=== PATIENT | male | born 1985 | race Caucasian/White ===

== ENCOUNTER 2017-05-25 06:46 | Emergency (ER) | payer OTHER ==
[2017-05-25] MEDS ORDERED: MORPHINE SULFATE 4 MG/ML SYRINGE IV STA (07:23)
[2017-05-25] MEDS ORDERED: SODIUM CHLORIDE 0.9% 1,000 ML IV STA ×2 (07:23→08:27)
[2017-05-25] MEDS ORDERED: ONDANSETRON 4 MG/2 ML VIAL IVP STA ×2 (07:23→08:13)
[2017-05-25] MEDS ORDERED: FAMOTIDINE 20 MG/2 ML VIAL IV STA (07:24)
--- NOTE | 2017-05-25 07:31 | ED ---
General Adult HPI - General Chief complaint: Abdominal Pain Stated complaint: vomiting Time Seen by Provider: 05/25/17 07:05 Source: patient, family, RN notes reviewed Mode of arrival: wheelchair Limitations: no limitations - History of Present Illness Initial comments: Patient is a pleasant 31-year-old male presenting to the emergency department with nausea vomiting diarrhea and abdominal pain. Onset of symptoms was yesterday. Patient has been off his OxyContin for a couple of days or to his mother used to manage this however she recently . Patient has vomited multiple times. Patient has diffuse abdominal discomfort and states it is hard to comfortable. Patient has had loose stools and diarrhea. Patient has lower back pain which is chronic and unchanged. - Related Data Home Medications Medication Instructions Recorded Confirmed oxyCODONE HCL 20 mg PO BID PRN 06/01/15 05/25/17 Previous Rx's Medication Instructions Recorded Famotidine [Pepcid] 20 mg PO BID #30 tablet 05/25/17 Hydrocodone/Acetaminophen [[place] 1 each PO Q6HR PRN #12 tab 05/25/17 5-325] Ondansetron Odt [Zofran Odt] 4 mg PO Q8HR PRN #10 tab 05/25/17 Allergies Allergy/AdvReac Type Severity Reaction Status Date / Time No Known Allergies Allergy Verified 05/25/17 07:25 Review of Systems ROS Statement: Those systems with pertinent positive or pertinent negative responses have been documented in the HPI. ROS Other: All systems not noted in ROS Statement are negative. Constitutional: Denies: fever Eyes: Denies: eye pain ENT: Denies: ear pain Respiratory: Denies: cough Cardiovascular: Denies: chest pain Endocrine: Denies: fatigue Gastrointestinal: Reports: abdominal pain, nausea, vomiting, diarrhea Genitourinary: Denies: dysuria Musculoskeletal: Reports: back pain (Chronic) Skin: Denies: rash Neurological: Denies: weakness Past Medical History Past Medical History: Unable to Obtain Additional Past Medical History / Comment(s): chronic neck/back pain, migraines History of Any Multi-Drug Resistant Organisms: None Reported Past Surgical History: Appendectomy Past Psychological History: No Psychological Hx Reported Smoking Status: Current every day smoker Past Alcohol Use History: None Reported Past Drug Use History: None Reported General Exam Limitations: no limitations General appearance: alert Head exam: Present: atraumatic Eye exam: Present: normal appearance, PERRL ENT exam: Present: normal oropharynx Neck exam: Present: normal inspection Respiratory exam: Present: normal lung sounds bilaterally Cardiovascular Exam: Present: regular rate, normal rhythm Expanded Peripheral pulses: 2+: Dorsalis Pedis (R), Dorsalis Pedis (L) GI/Abdominal exam: Present: soft, tenderness (Mild diffuse tenderness). Absent : distended, guarding, rebound, rigid Extremities exam: Present: normal inspection. Absent: pedal edema, calf tenderness Neurological exam: Present: alert Psychiatric exam: Present: normal affect, normal mood Skin exam: Present: normal color Course Vital Signs 05/25/17 05/25/17 06:48 09:00 Temperature 96.8 F L Pulse Rate 68 83 Respiratory 18 17 Rate Blood Pressure 125/85 123/81 O2 Sat by Pulse 98 99 Oximetry Medical Decision Making - Medical Decision Making Patient reexamined and resting comfortably in bed. Patient only complains of burning in the epigastric region. Patient will be provided Carafate. Patient is updated on results and need for follow-up. Patient is instructed he will need to see his primary care physician for further pain medication. Patient is felt to be at least partially withdrawing from opiates. Patient will be provided a small number of [place] for today. Patient also provided Pepcid and nausea medication. Patient is advised of need to return if symptoms worsen. - Lab Data Result diagrams: 05/25/17 07:02 05/25/17 07:02 Lab Results 05/25/17 05/25/17 05/25/17 Range/Units 07:02 07:02 07:02 WBC 11.5 H (3.8-10.6) k/uL RBC 4.98 (4.30-5.90) m/uL Hgb 15.7 (13.0-17.5) gm/dL Hct 44.9 (39.0-53.0) % MCV 90.2 (80.0-100.0) fL MCH 31.6 (25.0-35.0) pg MCHC 35.0 (31.0-37.0) g/dL RDW 13.1 (11.5-15.5) % Plt Count 394 (150-450) k/uL Neutrophils % 78 % Lymphocytes % 16 % Monocytes % 5 % Eosinophils % 1 % Basophils % 0 % Neutrophils # 8.9 H (1.3-7.7) k/uL Lymphocytes # 1.8 (1.0-4.8) k/uL Monocytes # 0.6 (0-1.0) k/uL Eosinophils # 0.1 (0-0.7) k/uL Basophils # 0.0 (0-0.2) k/uL PT 11.1 (9.0-12.0) sec INR 1.1 (<1.2) APTT 22.5 (22.0-30.0) sec Sodium 143 (137-145) mmol/L Potassium 4.0 (3.5-5.1) mmol/L Chloride 105 (98-107) mmol/L Carbon Dioxide 21 L (22-30) mmol/L Anion Gap 17 mmol/L BUN 12 (9-20) mg/dL Creatinine 0.70 (0.66-1.25) mg/dL Est GFR (MDRD) Af Amer >60 (>60 ml/min/1.73 sqM) Est GFR (MDRD) Non-Af >60 (>60 ml/min/1.73 sqM) Glucose 120 H (74-99) mg/dL Calcium 10.1 (8.4-10.2) mg/dL Total Bilirubin 1.1 (0.2-1.3) mg/dL AST 35 (17-59) U/L ALT 52 (21-72) U/L Alkaline Phosphatase 94 (38-126) U/L Total Protein 8.1 (6.3-8.2) g/dL Albumin 5.1 H (3.5-5.0) g/dL Amylase 87 (30-110) U/L Lipase 151 (23-300) U/L Urine Color Urine Appearance (Clear) Urine pH (5.0-8.0) Ur Specific [place] (1.001-1.035) Urine Protein (Negative) Urine Glucose (UA) (Negative) Urine Ketones (Negative) Urine Blood (Negative) Urine Nitrite (Negative) Urine Bilirubin (Negative) Urine Urobilinogen (<2.0) mg/dL Ur Leukocyte Esterase (Negative) Urine RBC (0-5) /hpf Urine WBC (0-5) /hpf Urine Bacteria (None) /hpf Urine Mucus (None) /hpf Urine Sperm (None) /hpf 05/25/17 Range/Units 07:02 WBC (3.8-10.6) k/uL RBC (4.30-5.90) m/uL Hgb (13.0-17.5) gm/dL Hct (39.0-53.0) % MCV (80.0-100.0) fL MCH (25.0-35.0) pg MCHC (31.0-37.0) g/dL RDW (11.5-15.5) % Plt Count (150-450) k/uL Neutrophils % % Lymphocytes % % Monocytes % % Eosinophils % % Basophils % % Neutrophils # (1.3-7.7) k/uL Lymphocytes # (1.0-4.8) k/uL Monocytes # (0-1.0) k/uL Eosinophils # (0-0.7) k/uL Basophils # (0-0.2) k/uL PT (9.0-12.0) sec INR (<1.2) APTT (22.0-30.0) sec Sodium (137-145) mmol/L Potassium (3.5-5.1) mmol/L Chloride (98-107) mmol/L Carbon Dioxide (22-30) mmol/L Anion Gap mmol/L BUN (9-20) mg/dL Creatinine (0.66-1.25) mg/dL Est GFR (MDRD) Af Amer (>60 ml/min/1.73 sqM) Est GFR (MDRD) Non-Af (>60 ml/min/1.73 sqM) Glucose (74-99) mg/dL Calcium (8.4-10.2) mg/dL Total Bilirubin (0.2-1.3) mg/dL AST (17-59) U/L ALT (21-72) U/L Alkaline Phosphatase (38-126) U/L Total Protein (6.3-8.2) g/dL Albumin (3.5-5.0) g/dL Amylase (30-110) U/L Lipase (23-300) U/L Urine Color Yellow Urine Appearance Clear (Clear) Urine pH 5.5 (5.0-8.0) Ur Specific [place] 1.025 (1.001-1.035) Urine Protein 1+ H (Negative) Urine Glucose (UA) Negative (Negative) Urine Ketones 4+ H (Negative) Urine Blood Small H (Negative) Urine Nitrite Negative (Negative) Urine Bilirubin Negative (Negative) Urine Urobilinogen <2.0 (<2.0) mg/dL Ur Leukocyte Esterase Negative (Negative) Urine RBC 3 (0-5) /hpf Urine WBC 2 (0-5) /hpf Urine Bacteria Rare H (None) /hpf Urine Mucus Few H (None) /hpf Urine Sperm Few H (None) /hpf - Radiology Data Radiology results: report reviewed (Computed tomography scan abdomen pelvis shows mild circumferential wall thickening of distal esophagus which could represent esophagitis or pedal hernia. Otherwise no acute process.), image reviewed (Abdominal x-ray shows no acute process) Disposition Clinical Impression: Abdominal pain, Vomiting, Withdrawal from opioids Disposition: HOME SELF-CARE Condition: Stable Instructions: Abdominal Pain (ED), Opioid Withdrawal (ED) Additional Instructions: Please follow-up with your primary care physician regarding further pain management. Return for fever, increased abdominal pain, uncontrolled vomiting, worsening symptoms or other concerns. Prescriptions: Famotidine [Pepcid] 20 mg PO BID #30 tablet Hydrocodone/Acetaminophen [[place] 5-325] 1 each PO Q6HR PRN #12 tab PRN Reason: Pain Ondansetron Odt [Zofran Odt] 4 mg PO Q8HR PRN #10 tab PRN Reason: Nausea Referrals: Dat Zarco MD [Primary Care Provider] - 1-2 days Time of Disposition: 09:40
--- NOTE | 2017-05-25 07:50 | XR ---
EXAMINATION TYPE: XR KUB DATE OF EXAM: 05/25/2017 7:44 AM CLINICAL HISTORY: Abdominal pain TECHNIQUE: Single supine KUB image of the abdomen is obtained. COMPARISON: None. FINDINGS: Scattered gas is seen in non-distended small bowel loops. Gas and fecal material is seen in non-distended colon. There is no visceromegaly, pneumoperitoneum, or abnormal calcification apprecia [place]. The lung bases are clear and the osseous structures are intact. IMPRESSION: Nonobstructive bowel gas pattern.
[2017-05-25 07:55] LABS: ALT 52 U/L (21-72); AST 35 U/L (17-59); Alkaline Phosphatase 94 U/L (38-126); Amylase 87 U/L (30-110); Anion Gap 17 mmol/L; Blood Urea Nitrogen 12 mg/dL (9-20); Calcium 10.1 mg/dL (8.4-10.2); Carbon Dioxide 21 mmol/L (22-30); Chloride 105 mmol/L (98-107); Glucose 120 mg/dL (74-99); Non-African American GFR(MDRD) >60 (>60 ml/min/1.73 sqM); Sodium 143 mmol/L (137-145); Total Bilirubin 1.1 mg/dL (0.2-1.3); Total Protein 8.1 g/dL (6.3-8.2)
[2017-05-25 07:57] LABS: Appearance,Urine Clear (Clear); Bacteria,Urine Rare /hpf; Bilirubin,Urine Negative (Negative); Glucose,Urine (UA) Negative (Negative); Ketones,Urine 4+ (Negative); Leukocyte Esterase,Urine Negative (Negative); Mucus,Urine Few /hpf; Nitrite,Urine Negative (Negative); PH, Urine 5.5 (5.0-8.0); Particle Count 12657; Protein,Urine 1+ (Negative); RBC,Urine 3 /hpf (0-5); Specific Gravity,Urine 1.025 (1.001-1.035); Sperm,Urine Few /hpf; UA Billing (MACRO vs. MICRO) MICRO; Urobilinogen,Urine <2.0 mg/dL (<2.0); WBC,Urine 2 /hpf (0-5)
[2017-05-25 08:00] LABS: INR 1.1 (<1.2); Partial Thromboplastin Time 22.5 sec (22.0-30.0); Prothrombin Time 11.1 sec (9.0-12.0)
[2017-05-25 08:12] LABS: Basophils % (A) 0 %; CHCM 35.6; Eosinophils # (A) 0.1 k/uL (0-0.7); Eosinophils % (A) 1 %; HCT 44.9 % (39.0-53.0); HDW 2.57; HGB 15.7 gm/dL (13.0-17.5); Luc % (Auto) 1; Lymphocytes # (A) 1.8 k/uL (1.0-4.8); Lymphocytes % (A) 16 %; MCH 31.6 pg (25.0-35.0); MCV 90.2 fL (80.0-100.0); Monocytes # (A) 0.6 k/uL (0-1.0); Monocytes % (A) 5 %; Neutrophils # (A) 8.9 k/uL (1.3-7.7); Neutrophils % (A) 78 %; RBC 4.98 m/uL (4.30-5.90); RDW 13.1 % (11.5-15.5); WBC 11.5 k/uL (3.8-10.6); WBC (Perox) 11.26
--- NOTE | 2017-05-25 09:08 | CT ---
EXAMINATION TYPE: CT abdomen pelvis wo con DATE OF EXAM: 05/25/2017 COMPARISON: Radiograph same day HISTORY: 31-year-old male with pain, abdominal pain/vomiting CT DLP: 212.20 mGycm. Automated exposure control for dose reduction was used. TECHNIQUE: Contiguous axial scanning of the abdomen and pelvis without IV contrast. Coronal and sagit michael reconstructions performed. FINDINGS: The heart is normal size without pericardial effusion. Lung bases are clear without pleural effusion. There is mild circumferential wall thickening of the distal esophagus just above the GE junction. Noncontrast appearance of the liver shows either a cyst or some focal fat along the anterior falcifor m ligament. Gallbladder, adrenal glands, spleen, and pancreas show no gross abnormality. No nephrolithiasis or hydronephrosis. No dilated small bowel, free fluid, or free air. While the appendix is not discretely visualized, no abnormal inflammatory changes are seen at the rig ht lower quadrant. No significant stool burden. No mesenteric or retroperitoneal lymphadenopathy allowing for noncontrast technique. Bladder is partially urine distended. No abnormal fluid collection in the pelvis or obvious pelvic ly mphadenopathy For noncontrast technique. Bones: Sclerotic focus in the medial left iliac bone likely bone island. No osseous destructive proce ss. IMPRESSION: 1. Mild circumferential wall thickening at the distal esophagus just above the GE junction could rep resent esophagitis or a small hiatal hernia. Correlate with patient's symptoms. 2. Otherwise, no acute inflammatory process identified in the abdomen or pelvis to explain the patie nt's symptoms. 3. No nephrolithiasis or hydronephrosis.
[2017-05-25] MEDS ORDERED: SUCRALFATE 1 GM TAB PO STA (09:33)
[2017-05-25 09:47] VITALS: BP 126/67; PULSE 79; RESP 21; TEMP 97.3
== END 2017-05-25 09:55 | disposition home or self-care (01) ==
LOC: EC 06:46 → SUPCPDRO 06:46 → EC 09:55
DX: R10.84 Generalized abdominal pain (principal); R11.2 Nausea with vomiting, unspecified; F11.23 Opioid dependence with withdrawal; F17.200 Nicotine dependence, unspecified, uncomplicated; Z90.49 Acquired absence of other specified parts of digestive tract
CPT/HCPCS: 96374; 99284; 96375 ×2; 96376; 96361 ×2; 36415; 80053; 82150; 83690; 85025; 85610; 85730; 81001; 74000; 74176; J2270; J2405

== ENCOUNTER 2017-05-27 09:50 | Emergency (ER) | payer OTHER ==
[2017-05-27 10:01] VITALS: RESP 18; TEMP 97.4
[2017-05-27] MEDS ORDERED: DICYCLOMINE 10 MG/ML 2 ML AMP IM STA (10:30)
[2017-05-27] MEDS ORDERED: ONDANSETRON 4 MG/2 ML VIAL IVP STA (10:30)
[2017-05-27] MEDS ORDERED: HYDROmorphone 1 MG/ML 1 ML SYRINGE IVP STA (10:30)
[2017-05-27] MEDS ORDERED: SODIUM CHLORIDE 0.9% 2,000 ML IV STA (10:30)
[2017-05-27] MEDS ORDERED: PANTOPRAZOLE 40 MG/10 ML VIAL IVP STA (10:30)
--- NOTE | 2017-05-27 10:37 | ED ---
General Adult HPI - General Chief complaint: Abdominal Pain Stated complaint: abd pain, vomiting Time Seen by Provider: 05/27/17 10:16 Source: patient, RN notes reviewed Mode of arrival: ambulatory Limitations: no limitations - History of Present Illness Initial comments: Patient is a pleasant 31-year-old male presenting to the emergency Department with vomiting. Patient was in the emergency department 2 days ago with similar symptoms. Patient felt decent yesterday. Patient was able to tolerate oral intake yesterday however less than normal. Patient woke up this morning with similar symptoms. Patient has burning in his abdomen. Patient has had multiple episodes of vomiting. Burning extends up to the chest and into the back of his throat. Patient is also had several episodes of diarrhea. Patient recently discontinued OxyContin that he has been on for years. Patient was given a small prescription for [place] a couple days ago and still has a couple left. - Related Data Home Medications Medication Instructions Recorded Confirmed oxyCODONE HCL 20 mg PO BID PRN 06/01/15 05/25/17 Previous Rx's Medication Instructions Recorded Famotidine [Pepcid] 20 mg PO BID #30 tablet 05/25/17 Hydrocodone/Acetaminophen [[place] 1 each PO Q6HR PRN #12 tab 05/25/17 5-325] Ondansetron Odt [Zofran Odt] 4 mg PO Q8HR PRN #10 tab 05/25/17 Sucralfate [Carafate] 10 ml PO ACHS #200 ml 05/27/17 Allergies Allergy/AdvReac Type Severity Reaction Status Date / Time No Known Allergies Allergy Verified 05/27/17 10:01 Review of Systems ROS Statement: Those systems with pertinent positive or pertinent negative responses have been documented in the HPI. ROS Other: All systems not noted in ROS Statement are negative. Constitutional: Denies: fever Eyes: Denies: eye pain ENT: Denies: ear pain Respiratory: Denies: cough Cardiovascular: Reports: chest pain Endocrine: Denies: fatigue Gastrointestinal: Reports: abdominal pain, nausea, vomiting, diarrhea Genitourinary: Denies: dysuria Musculoskeletal: Reports: back pain (Chronic) Skin: Denies: rash Neurological: Denies: weakness Psychiatric: Reports: anxiety Past Medical History Past Medical History: Unable to Obtain Additional Past Medical History / Comment(s): chronic neck/back pain, migraines History of Any Multi-Drug Resistant Organisms: None Reported Past Surgical History: Appendectomy Past Psychological History: No Psychological Hx Reported Smoking Status: Current every day smoker Past Alcohol Use History: None Reported Past Drug Use History: None Reported General Exam Limitations: no limitations General appearance: alert Head exam: Present: atraumatic Eye exam: Present: normal appearance, PERRL ENT exam: Present: normal oropharynx Neck exam: Present: normal inspection Respiratory exam: Present: normal lung sounds bilaterally Cardiovascular Exam: Present: regular rate, normal rhythm Expanded Peripheral pulses: 2+: Dorsalis Pedis (R), Dorsalis Pedis (L) GI/Abdominal exam: Present: soft, tenderness (Mild epigastric tenderness), normal bowel sounds. Absent: distended, guarding, rebound, rigid, pulsatile mass Extremities exam: Present: normal inspection Neurological exam: Present: alert Psychiatric exam: Present: normal affect, normal mood Skin exam: Present: normal color Course Vital Signs 05/27/17 09:58 Temperature 97.4 F L Pulse Rate 80 Respiratory 18 Rate Blood Pressure 111/69 O2 Sat by Pulse 99 Oximetry - Reevaluation(s) Reevaluation #1: 05/27/17 12:24 Patient reevaluated and improved following GI cocktail. Patient states he has not been taking Pepcid and is strongly advised to do this. Patient states Carafate did help last time. EKG Findings - EKG Comments: EKG Findings:: Normal sinus rhythm 74. OK 146. QRS 82. QT 410. QTc 455. Right axis. Normal QRS. No acute ST change. Medical Decision Making - Lab Data Result diagrams: 05/27/17 10:20 05/27/17 10:20 Lab Results 05/27/17 05/27/17 05/27/17 Range/Units 10:20 10:20 10:20 WBC 8.7 (3.8-10.6) k/uL RBC 4.75 (4.30-5.90) m/uL Hgb 15.6 (13.0-17.5) gm/dL Hct 43.5 (39.0-53.0) % MCV 91.6 (80.0-100.0) fL MCH 33.0 (25.0-35.0) pg MCHC 36.0 (31.0-37.0) g/dL RDW 13.2 (11.5-15.5) % Plt Count 329 (150-450) k/uL Neutrophils % 86 % Lymphocytes % 9 % Monocytes % 4 % Eosinophils % 0 % Basophils % 0 % Neutrophils # 7.5 (1.3-7.7) k/uL Lymphocytes # 0.8 L (1.0-4.8) k/uL Monocytes # 0.3 (0-1.0) k/uL Eosinophils # 0.0 (0-0.7) k/uL Basophils # 0.0 (0-0.2) k/uL PT (9.0-12.0) sec INR (<1.2) APTT (22.0-30.0) sec Sodium 142 (137-145) mmol/L Potassium 3.7 (3.5-5.1) mmol/L Chloride 106 (98-107) mmol/L Carbon Dioxide 20 L (22-30) mmol/L Anion Gap 16 mmol/L BUN 17 (9-20) mg/dL Creatinine 0.71 (0.66-1.25) mg/dL Est GFR (MDRD) Af Amer >60 (>60 ml/min/1.73 sqM) Est GFR (MDRD) Non-Af >60 (>60 ml/min/1.73 sqM) Glucose 103 H (74-99) mg/dL Calcium 10.1 (8.4-10.2) mg/dL Total Bilirubin 0.9 (0.2-1.3) mg/dL AST 29 (17-59) U/L ALT 43 (21-72) U/L Alkaline Phosphatase 81 (38-126) U/L Total Creatine Kinase 192 H (55-170) U/L CK-MB (CK-2) 1.0 (0.0-2.4) ng/mL CK-MB (CK-2) Rel Index 0.5 Troponin I <0.012 (0.000-0.034) ng/mL Total Protein 7.9 (6.3-8.2) g/dL Albumin 5.1 H (3.5-5.0) g/dL Amylase 68 (30-110) U/L Lipase 158 (23-300) U/L Urine Color Urine Appearance (Clear) Urine pH (5.0-8.0) Ur Specific [place] (1.001-1.035) Urine Protein (Negative) Urine Glucose (UA) (Negative) Urine Ketones (Negative) Urine Blood (Negative) Urine Nitrite (Negative) Urine Bilirubin (Negative) Urine Urobilinogen (<2.0) mg/dL Ur Leukocyte Esterase (Negative) Urine RBC (0-5) /hpf Urine WBC (0-5) /hpf Urine Bacteria (None) /hpf Hyaline Casts (0-2) /lpf Urine Mucus (None) /hpf 05/27/17 05/27/17 Range/Units 10:20 11:40 WBC (3.8-10.6) k/uL RBC (4.30-5.90) m/uL Hgb (13.0-17.5) gm/dL Hct (39.0-53.0) % MCV (80.0-100.0) fL MCH (25.0-35.0) pg MCHC (31.0-37.0) g/dL RDW (11.5-15.5) % Plt Count (150-450) k/uL Neutrophils % % Lymphocytes % % Monocytes % % Eosinophils % % Basophils % % Neutrophils # (1.3-7.7) k/uL Lymphocytes # (1.0-4.8) k/uL Monocytes # (0-1.0) k/uL Eosinophils # (0-0.7) k/uL Basophils # (0-0.2) k/uL PT 11.2 (9.0-12.0) sec INR 1.1 (<1.2) APTT 22.6 (22.0-30.0) sec Sodium (137-145) mmol/L Potassium (3.5-5.1) mmol/L Chloride (98-107) mmol/L Carbon Dioxide (22-30) mmol/L Anion Gap mmol/L BUN (9-20) mg/dL Creatinine (0.66-1.25) mg/dL Est GFR (MDRD) Af Amer (>60 ml/min/1.73 sqM) Est GFR (MDRD) Non-Af (>60 ml/min/1.73 sqM) Glucose (74-99) mg/dL Calcium (8.4-10.2) mg/dL Total Bilirubin (0.2-1.3) mg/dL AST (17-59) U/L ALT (21-72) U/L Alkaline Phosphatase (38-126) U/L Total Creatine Kinase (55-170) U/L CK-MB (CK-2) (0.0-2.4) ng/mL CK-MB (CK-2) Rel Index Troponin I (0.000-0.034) ng/mL Total Protein (6.3-8.2) g/dL Albumin (3.5-5.0) g/dL Amylase (30-110) U/L Lipase (23-300) U/L Urine Color Yellow Urine Appearance Clear (Clear) Urine pH 8.5 H (5.0-8.0) Ur Specific [place] 1.026 (1.001-1.035) Urine Protein 1+ H (Negative) Urine Glucose (UA) Negative (Negative) Urine Ketones 4+ H (Negative) Urine Blood Negative (Negative) Urine Nitrite Negative (Negative) Urine Bilirubin Negative (Negative) Urine Urobilinogen <2.0 (<2.0) mg/dL Ur Leukocyte Esterase Negative (Negative) Urine RBC 5 (0-5) /hpf Urine WBC 1 (0-5) /hpf Urine Bacteria Rare H (None) /hpf Hyaline Casts 1 (0-2) /lpf Urine Mucus Rare H (None) /hpf - Radiology Data Radiology results: image reviewed (Chest x-ray and abdominal x-ray shows no acute process.) Disposition Clinical Impression: Vomiting, Abdominal pain, Withdrawal from opioids, Esophagitis Disposition: HOME SELF-CARE Condition: Stable Instructions: Abdominal Pain (ED), Esophagitis (ED), Acute Nausea and Vomiting (ED), Opioid Withdrawal (ED) Additional Instructions: Please take Pepcid twice daily as directed. Return for uncontrolled vomiting, pain, worsening or changing symptoms or other concerns. Please follow-up with [place] as planned. Also follow-up with GI and consider scope Prescriptions: Sucralfate [Carafate] 10 ml PO ACHS #200 ml Referrals: Dat Zarco MD [Primary Care Provider] - 1-2 days Jabier Reese MD [STAFF PHYSICIAN] - 1-2 days Time of Disposition: 12:29
[2017-05-27 11:18] LABS: Basophils % (A) 0 %; CH 31.8; CHCM 34.9; Eosinophils % (A) 0 %; HCT 43.5 % (39.0-53.0); HDW 2.46; HGB 15.6 gm/dL (13.0-17.5); Luc # (Auto) 0.06; Luc % (Auto) 1; Lymphocytes # (A) 0.8 k/uL (1.0-4.8); Lymphocytes % (A) 9 %; MCV 91.6 fL (80.0-100.0); Mean Platelet Volume 6.9; Monocytes # (A) 0.3 k/uL (0-1.0); Monocytes % (A) 4 %; Neutrophils # (A) 7.5 k/uL (1.3-7.7); Neutrophils % (A) 86 %; RBC 4.75 m/uL (4.30-5.90); RDW 13.2 % (11.5-15.5); WBC 8.7 k/uL (3.8-10.6); WBC (Perox) 9.05
[2017-05-27 11:28] LABS: INR 1.1 (<1.2); Partial Thromboplastin Time 22.6 sec (22.0-30.0); Prothrombin Time 11.2 sec (9.0-12.0)
[2017-05-27 11:32] LABS: ALT 43 U/L (21-72); AST 29 U/L (17-59); Alkaline Phosphatase 81 U/L (38-126); Amylase 68 U/L (30-110); Anion Gap 16 mmol/L; Blood Urea Nitrogen 17 mg/dL (9-20); Calcium 10.1 mg/dL (8.4-10.2); Carbon Dioxide 20 mmol/L (22-30); Chloride 106 mmol/L (98-107); Glucose 103 mg/dL (74-99); Non-African American GFR(MDRD) >60 (>60 ml/min/1.73 sqM); Potassium 3.7 mmol/L (3.5-5.1); Sodium 142 mmol/L (137-145); Total Bilirubin 0.9 mg/dL (0.2-1.3); Total Protein 7.9 g/dL (6.3-8.2)
--- NOTE | 2017-05-27 11:39 | XR ---
EXAMINATION TYPE: XR chest 1V DATE OF EXAM: 05/27/2017 HISTORY: abdominal pain. REFERENCE: NONE. FINDINGS: The lungs are clear. Pleural spaces are clear. Heart size is normal. There is some peribron chial cuffing. IMPRESSION: FINDINGS CONSISTENT WITH BUT NOT DIAGNOSTIC OF BRONCHITIS.
--- NOTE | 2017-05-27 11:41 | XR ---
EXAMINATION TYPE: XR KUB , 2 VIEWS DATE OF EXAM ORDERED: 05/27/2017 HISTORY: abdominal pain. COMPARISON: Previous study dated 05/25/[address] scan of the abdomen dated 05/25/2017. FINDINGS: There is a solitary loop of small bowel which is mildly gaseous distended in the left mida bdomen. The abdominal gas pattern is otherwise normal. There is no evidence of obstruction or free ai r. No unusual calcifications are seen. IMPRESSION: NO ACUTE INTRA-ABDOMINAL ABNORMALITY.
[2017-05-27 11:47] LABS: Creatine Kinase 192 U/L (55-170)
[2017-05-27 11:51] LABS: Appearance,Urine Clear (Clear); Bacteria,Urine Rare /hpf; Bilirubin,Urine Negative (Negative); Glucose,Urine (UA) Negative (Negative); Ketones,Urine 4+ (Negative); Leukocyte Esterase,Urine Negative (Negative); Mucus,Urine Rare /hpf; Nitrite,Urine Negative (Negative); PH, Urine 8.5 (5.0-8.0); Particle Count 3630; Protein,Urine 1+ (Negative); RBC,Urine 5 /hpf (0-5); Specific Gravity,Urine 1.026 (1.001-1.035); UA Billing (MACRO vs. MICRO) MICRO; Urobilinogen,Urine <2.0 mg/dL (<2.0); WBC,Urine 1 /hpf (0-5)
[2017-05-27] MEDS ORDERED: MAG HYDROX/AL HYDROX/SIMETH 30 ML, HYOSCYAMINE ELIXIR 10 ML, CIMETIDINE HCL 300 MG, LID... PO STA ×4 (11:54)
[2017-05-27 11:58] LABS: Troponin I <0.012 ng/mL (0.000-0.034)
[2017-05-27 12:31] VITALS: BP 115/58; PULSE 78
== END 2017-05-27 12:50 | disposition home or self-care (01) ==
LOC: EC 09:50
DX: K20.9 Esophagitis, unspecified (principal); R10.13 Epigastric pain; R11.10 Vomiting, unspecified; R19.7 Diarrhea, unspecified; F11.23 Opioid dependence with withdrawal; F17.200 Nicotine dependence, unspecified, uncomplicated; Z98.890 Other specified postprocedural states
CPT/HCPCS: 36415; 93005; 80053; 82150; 82550; 82553; 83690; 84484; 85025; 85610; 85730; 81001; 71010; 74000; 99284; 96374; 96375 ×2; 96361 ×2; 96372; J0500; J2405; J1170; C9113

== ENCOUNTER 2023-11-19 00:59 | Emergency (ER) | payer OTHER ==
[2023-11-19 01:35] VITALS: TEMP 97.6
--- NOTE | 2023-11-19 02:46 | ED ---
Extremity Problem HPI - General Chief complaint: Extremity Problem,Nontraumatic Stated complaint: Left shoulder injury Time Seen by Provider: 11/19/23 01:11 Source: patient Mode of arrival: ambulatory Limitations: no limitations - History of Present Illness Initial comments: This patient is a 38-year-old man who believes he may have dislocated his shoul isaac. The patient states that he had been moving some heavy objects and then he experienced sharp severe left shoulder pain. The pain was worse with attempting to move the shoulder. The patient states that he hit the anterior aspect of his left shoulder against a wall and thought that he felt a pop and then was able to move the shoulder more freely than he had been before. He does have some res idual pain but states that it has improved. No paresthesias or weakness to the left arm. He states that he has previously had similar problem with the right shoulder. MD Complaint: joint pain -: hour(s) Location: left History of Same: Yes Radiation: none Quality: aching Consistency: now resolved Improves with: nothing Worsens with: nothing Associated Symptoms: denies other symptoms - Related Data Home Medications Medication Instructions Recorded Confirmed oxyCODONE HCL [oxyCODONE HCL (IR)] 20 mg PO BID PRN 06/01/15 05/27/17 Cyclobenzaprine [Flexeril] 10 mg PO DAILY PRN 05/27/17 05/27/17 Previous Rx's Medication Instructions Recorded Sucralfate [Carafate] 10 ml PO ACHS #200 ml 05/27/17 Ibuprofen [Motrin] 600 mg PO Q8HR PRN #20 tab 11/19/23 Allergies Allergy/AdvReac Type Severity Reaction Status Date / Time No Known Allergies Allergy Verified 05/27/17 12:32 Review of Systems ROS Statement: Those systems with pertinent positive or pertinent negative responses have been documented in the HPI. ROS Other: All systems not noted in ROS Statement are negative. Constitutional: Denies: fever, chills, weakness Respiratory: Denies: cough, dyspnea Cardiovascular: Denies: chest pain Musculoskeletal: Reports: as per HPI, arthralgia Skin: Denies: rash Neurological: Denies: weakness, numbness, paresthesias Past Medical History Past Medical History: Unable to Obtain Additional Past Medical History / Comment(s): chronic neck/back pain, migraines History of Any Multi-Drug Resistant Organisms: None Reported Past Surgical History: Appendectomy Past Psychological History: No Psychological Hx Reported Past Alcohol Use History: None Reported Past Drug Use History: None Reported General Exam Limitations: no limitations General appearance: alert, in no apparent distress Head exam: Present: atraumatic, normocephalic Eye exam: Present: normal appearance Respiratory exam: Present: normal lung sounds bilaterally. Absent: respiratory distress, wheezes, rales, rhonchi, stridor Cardiovascular Exam: Present: regular rate, normal rhythm, normal heart sounds, other (Pulses to the left upper extremity are normal and symmetric with right normal capillary refill). Absent: systolic murmur, diastolic murmur, rubs, gallop Extremities exam: Present: normal inspection, tenderness, normal capillary refill Neurological exam: Present: alert. Absent: motor sensory deficit (No sensory or motor deficit throughout the left upper extremity) Skin exam: Present: warm, dry, intact, normal color. Absent: rash Course Vital Signs 11/19/23 11/19/23 00:59 03:04 Temperature 97.6 F Pulse Rate 82 72 Respiratory 18 16 Rate Blood Pressure 123/84 130/89 O2 Sat by Pulse 99 96 Oximetry Medical Decision Making - Medical Decision Making The patient had x-ray of the shoulder that I interpreted as negative for fracture or dislocation of the left shoulder. Was pt. sent in by a medical professional or institution ([facility], [employer], urgent care, hospital, or detention...) When possible be specific @ -[No] Did you speak to anyone other than the patient for history (EMS, parent, family, police, friend...)? What history was obtained from this source @ -[No] Did you review nursing and triage notes (agree or disagree)? Why? @ -[I reviewed and agree with nursing and triage notes] Were old charts reviewed (outside hosp., previous admission, EMS record, old EKG, old radiological studies, urgent care reports/EKG's, detention records)? Report findings @ -[No old charts were reviewed] Differential Diagnosis (chest pain, altered mental status, abdominal pain women, abdominal pain men, vaginal bleeding, weakness, fever, dyspnea, syncope, headache, dizziness, GI bleed, back pain, seizure, CVA, palpatations, mental health, musculoskeletal)? @ -Differential Musculoskeletal Muscular strain, contusion, ligament sprain, fracture, arthritis, septic arthritis, bursitis, cellulitis, muscle spasm, nerve compression, DVT, arterial occlusion, herpes zoster, electrolyte abnormality, tumor.... This is not meant to be in all inclusive list EKG interpreted by me (3pts min.). @ -[ X-rays interpreted by me (1pt min.). @ -[I interpreted as above CT interpreted by me (1pt min.). @ -[None done] U/S interpreted by me (1pt. min.). @ -[None done] What testing was considered but not performed or refused? (CT, X-rays, U/S, labs)? Why? @ -[None] What meds were considered but not given or refused? Why? @ -[None] Did you discuss the management of the patient with other professionals (professionals i.e. , PA, [employer], lab, RT, psych nurse, social media community manager, angiography nurse, teacher, motorized squad commanding officer, medical case manager)? Give summary @ -[No] Was smoking cessation discussed for >3mins.? @ -[No] Was critical care preformed (if so, how long)? @ -[No] Were there social determinants of health that impacted care today? How? (Homelessness, low income, unemployed, alcoholism, drug addiction, transportation, low edu. Level, literacy, decrease access to med. care, half-way, rehab)? @ -[No] Was there de-escalation of care discussed even if they declined (Discuss DNR or withdrawal of care, Hospice)? DNR status @ -[No] What co-morbidities impacted this encounter? (DM, HTN, Smoking, COPD, CAD, Cancer, CVA, ARF, Chemo, Hep., AIDS, mental health diagnosis, sleep apnea, morbid obesity)? @ -[None] Was patient admitted / discharged? Hospital course, mention meds given and route, prescriptions, significant lab abnormalities, going to OR and other pertinent info. @ -[Patient is 38-year-old man with left shoulder pain. He believes there may have been a dislocation, but if that was initially present it has resolved. The patient is advised not to perform any range of motion above shoulder level to give the shoulder some days to heal. He will follow with orthopedic surgery if there is not significant improvement within the next 48-72 hours. Undiagnosed new problem with uncertain prognosis? @ -[No] Drug Therapy requiring intensive monitoring for toxicity (Heparin, Nitro, Insulin, Cardizem)? @ -[No] Were any procedures done? @ -[No] Diagnosis/symptom? @ -[Acute left shoulder injury Acute, or Chronic, or Acute on Chronic? @ -[Acute Uncomplicated (without systemic symptoms) or Complicated (systemic symptoms)? @ -[Uncomplicated Side effects of treatment? @ -[No] Exacerbation, Progression, or Severe Exacerbation? @ -[No] Poses a threat to life or bodily function? How? (Chest pain, [place], [place], pneumonia, PE, COPD, DKA, ARF, appy, cholecystitis, CVA, Diverticulitis, Homicidal, Suicidal, threat to staff... and all critical care pts) @ -[No] Disposition Clinical Impression: Injury of left rotator cuff Disposition: HOME SELF-CARE Condition: Good Instructions (If sedation given, give patient instructions): Rotator Cuff Injury (ED) Prescriptions: Ibuprofen [Motrin] 600 mg PO Q8HR PRN #20 tab PRN Reason: Pain Is patient prescribed a controlled substance at d/c from ED?: No Referrals: None,Stated [Primary Care Provider] - 1-2 days
[2023-11-19 03:28] VITALS: BP 130/89; PULSE 72; RESP 16
--- NOTE | 2023-11-19 06:24 | XR ---
EXAMINATION TYPE: XR shoulder complete LT DATE OF EXAM: 11/19/2023 2:04 AM CLINICAL INDICATION:Male, 38 years old with history of pain with rotation/extension; [facility] COMPARISON: None TECHNIQUE: XR shoulder complete LT; examined in AP, internally rotated and scapular Y projections. FINDINGS/IMPRESSION: 1. No acute osseous pathology or joint dislocation. Calcification projecting over the supraspinatus insertion seen on one view correlate with MRI for ten dinosis. This could be within the soft tissues posterior to the shoulder.
== END 2023-11-19 03:08 | disposition home or self-care (01) ==
LOC: EC 00:59
DX: S46.002A Unspecified injury of muscle(s) and tendon(s) of the rotator cuff of left shoulder, initial encounter (principal); W22.01XA Walked into wall, initial encounter; X50.0XXA Overexertion from strenuous movement or load, initial encounter
CPT/HCPCS: 99283